=== PATIENT | female | born 1970 | race Caucasian/White ===

== ENCOUNTER → 2017-10-01 | Outpatient (CLI) | payer OTHER | END | disposition home or self-care (01) | LOC: KCIC MAMMO 10:54 | DX: Z12.31 Encounter for screening mammogram for malignant neoplasm of breast (principal); N63.10 Unspecified lump in the right breast, unspecified quadrant | CPT/HCPCS: 77067 ==

== ENCOUNTER → 2017-10-08 | Outpatient (CLI) | payer OTHER | END | disposition home or self-care (01) | LOC: KCIC US 12:50 | DX: R92.8 Other abnormal and inconclusive findings on diagnostic imaging of breast (principal) | CPT/HCPCS: 76641 ==

== ENCOUNTER → 2018-07-01 | Outpatient (CLI) | payer OTHER ==
--- NOTE | 2018-07-01 09:42 | KCIC ---
Right breast ultrasound: Reason for examination: Follow-up nodules. Comparison is made to previous study dated 10/08/2017. Ultrasound examination was performed in the areas of previous sonographic concern and the right axilla. In the 10:00 position 4 cm from the nipple, there continues to be hypoechoic circumscribed lesion measuring 1.4 x 1.2 cm in greatest dimension which is stable. In the 10:00 position 6 cm from the nipple, there is a 6.4 x 4.7 mm hypoechoic lesion which is stable. No other cystic or solid nodules are seen. No abnormal appearing lymph nodes are seen in the right axilla. IMPRESSION: Nodules at the 10:00 position appear to be stable. No suspicious abnormalities are seen. Recommend reevaluation of the right breast with ultrasound at the time of bilateral mammograms. BI-RADS Category 3: Probably Benign. "Our facility is accredited by the [employer] Mammography [employer]." This patient's information has been entered into a reminder system for the patient to be notified with the results of her examination and a target date for the next mammogram. Electronically signed by: Grace Cortes MD (07/01/2018 9:39 AM) [id number]
== END | disposition home or self-care (01) ==
LOC: KCIC US 08:56
PROVIDERS: ATTEND Nurse Practitioner Family
DX: R92.8 Other abnormal and inconclusive findings on diagnostic imaging of breast (principal)
CPT/HCPCS: 76641

== ENCOUNTER → 2019-05-31 | Outpatient (CLI) | payer OTHER ==
--- NOTE | 2019-05-31 17:21 | KCIC ---
PELVIS COMPLETE History: Pelvic pain Comparison: None. Findings: Multiple transabdominal sonographic images of the pelvis are submitted. Uterus measured 11.5 x 5.4 x 5.8 cm. Endometrium measured up to about 1.1 cm in thickness. Right ovary measured 3.3 x 3 x 2.2 cm. Left ovary measured 2.1 x 1.9 x 2 cm. There is normal low resistance vascularity of the ovaries bilaterally. There are some nabothian cysts, largest up to 1.5 cm. No free fluid is demonstrated. Impression: 1. Other than some nabothian cysts, no significant abnormality is demonstrated. Uterus is somewhat prominent in size although discrete mass not demonstrated. Endometrial thickness potentially can be considered within normal limits in a premenopausal patient. Electronically signed by: Ga Pizarro MD (05/31/2019 5:18 PM) [id number]
== END | disposition home or self-care (01) ==
LOC: KCIC US 15:01
PROVIDERS: ATTEND Nurse Practitioner Family
DX: N88.8 Other specified noninflammatory disorders of cervix uteri (principal)
CPT/HCPCS: 76856

== ENCOUNTER → 2020-09-13 | Outpatient (CLI) | payer OTHER ==
--- NOTE | 2020-09-13 12:29 | KCIC ---
EXAM: Bilateral screening mammogram. HISTORY: 50-year-old female presents for screening mammography. TECHNIQUE: Full-field digital craniocaudal and mediolateral oblique views of both breasts are obtaine d for evaluation. Computer aided detection was applied. COMPARISON: 07/01/2018 and 10/01/2017 BREAST PARENCHYMAL DENSITY: Level C - Heterogeneously dense. FINDINGS: There is no new suspicious mass, microcalcification or region of architectural distortion. There is a stable circumscribed nodule within the 10:00 position of the right breast at anterior dept h. IMPRESSION: 1. No new suspicious mammographic finding. 2. Stable circumscribed nodule within the 10:00 position of the right breast at anterior depth, corre sponding with a 1.4 cm lesion demonstrated on a sonogram performed 07/01/2018. The patient did not re turn for the recommended 6 month follow-up sonogram following the exam performed 07/01/2018. However, the greater than two-year interval mammographic stability favors benignity. 3. BI-RADS Category 2: Benign finding(s). RECOMMENDATION: Annual mammography is recommended. If your mammogram demonstrates that you have dense breast tissue, which could hide abnormalities, and if you have other risk factors for breast cancer that have been identified, you might benefit from s upplemental screening tests that may be suggested by your ordering physician. Dense breast tissue, i n and of itself, is a relatively common condition. This information is not provided to cause undue c oncern, but rather to raise your awareness and to promote discussion with your physician regarding th e presence of other risk factors, in addition to dense breast tissue. A report of your mammography re sults will be sent to you and your physician. You should contact your physician if you have any ques tions or concerns regarding this report. Mammography is a sensitive method for finding small breast cancers, but it does not detect them all a nd is not a substitute for careful clinical examination. A negative mammogram does not negate a clin ically suspicious finding and should not result in delay in biopsying a clinically suspicious abnorma lity. PQRS compliance statement - Patient information was entered into a reminder system with a target due date for the next mammogram. "Our facility is accredited by the [employer] Mammography [employer]." Electronically signed by: Sasha Archer MD (09/13/2020 12:26 PM) [id number]
== END ==
LOC: KCIC MAMMO 10:06
PROVIDERS: ATTEND Nurse Practitioner Family
DX: Z12.31 Encounter for screening mammogram for malignant neoplasm of breast (principal)
CPT/HCPCS: 77067